=== PATIENT | male | born 1955 | race Caucasian/White ===

== ENCOUNTER 2023-09-14 15:38 | Outpatient (CLI) | payer MEDICARE, SELFPAY ==
--- NOTE | 2023-09-14 16:00 | PE_ITS ---
[facility] [address] [facility] [address] Phone:?[phone] Fax:?[phone] Referring Physician Information: Jose Bustamante M.D. [facility] [address] [facility] [address] Phone:?[phone] Fax:?[phone] Patient:Ayesha Coates D.O.B:?1955 Sex:?Male Phone:?[phone] [facility] MRN:?[id number] Exam Date:?09/14/2023 EXAM: PET/CT EYES TO THIGHS, CANCER INITIAL STAGING CLINICAL INFORMATION: Solitary pulmonary nodule. TECHNICAL INFORMATION: Helical acquisition of data was obtained from the orbits to the upper thighs with reconstruction of 3.75 mm thick images at 3.[address] data was used for attenuation correction. PET scanning was performed through the same anatomic range 60 minutes following administration of 13.03 mCi of 18-FDG delivered intravenously. The patient's glucose at the time of the injection was 96 mg/dL. PET, CT and PET/CT fusion images are interpreted using a computer viewing workstation. PET, CT and PET/CT fusion images were archived and saved in the patient's permanent medical record. COMPARISON: Chest CT from 07/06/2023. INTERPRETATION: Head and Neck: There are no abnormal hypermetabolic foci within the head or neck. There is physiologic uptake in the intracranial soft tissues. Chest: The known spiculated 1.9 cm nodule that occupies the perifissural right upper lobe (Se 2 Im 113) has a maximum SUV of 16.68, consistent with a malignant etiology. There are no other abnormal hypermetabolic foci within the chest. Background mediastinal blood pool uptake has a maximum SUV of 2.65. No additional lung nodules or masses detected on this free-breathing exam. No intrathoracic lymphadenopathy in terms of size, morphology, or metabolic rate. Abdomen and Pelvis: There are no abnormal hypermetabolic foci within the abdomen or pelvis. Background hepatic parenchymal uptake has a maximum SUV of 3.57. There is physiologic excretion of radiotracer in the urine and bowel. Skeleton, Musculature, and Integument: No abnormal hypermetabolic foci within the skeleton. No adolfo osteoblastic or osteolytic disease. CONCLUSION: Hypermetabolic 1.9 cm nodule in the right upper lobe is highly suspicious for primary lung cancer; refer to the diagnostic CT report for T-staging. No johnathon or distant metastases identified (N0 M0). Electronically signed on 09/15/2023 4:12:00 PM by Sergio Ramos M.D.
== END 2023-09-14 15:39 | disposition home or self-care (01) ==
LOC: RAD 15:41
PROVIDERS: PCP Physician Assistant; Visit Provider Internal Medicine Pulmonary Disease
DX: R91.1 Solitary pulmonary nodule (principal)
CPT/HCPCS: 78815; A9552